=== PATIENT | male | born 1995 | race African-American/Black ===

== ENCOUNTER 2021-06-14 06:57 | Emergency (ER) | payer BC | END 2021-06-14 08:40 | disposition home or self-care (01) | LOC: MW.ED 06:57 | DX: S83.92XA Sprain of unspecified site of left knee, initial encounter (principal); L03.116 Cellulitis of left lower limb; X50.1XXA Overexertion from prolonged static or awkward postures, initial encounter | CPT/HCPCS: 73562-26-LT; 73562-LT; 93971-26-LT; 93971-LT; 99284-25 ==